=== PATIENT | male | born 1980 | race Caucasian/White ===

== ENCOUNTER 2018-10-18 17:33 | Emergency (ER) | payer SELFPAY ==
--- NOTE | 2018-10-18 17:47 | ED ---
HPI Chest Pain - HPI Summary HPI Summary: Patient is a 38 y/o male who presents to the ED c/o chest tightness. 2 days ago he felt a brief moment of sharp left anterior chest pain after running. Yesterday he began having chest pain at 11:00, described as tightness, squeezing , and heaviness. He had some radiation to his LUE, and the entire episode lasted about 4 hours. During this episode patient also c/o dizziness, diaphoresis, fatigue, SOB, and was disoriented. The CP resolved later in the day. Today he noted very mild chest discomfort when he woke up. He then began having intense pain radiating up his left posterior neck. Current pain is rated a 3/10 in severity. Patient still reports intermittent SOB, but denies any nausea. He does not normally exercise. Patients paternal grandfather had an AK at 72 y/o. He denies any hx of DM, HTN, or HLD. Patient is former smoker. - History of Current Complaint Chief Complaint: EDChestPainROMI Time Seen by Provider: 10/18/18 17:45 Hx Obtained From: Patient Onset/Duration: Started Days Ago - 2, Still Present Current Severity: Mild Pain Intensity: 3 Pain Scale Used: 0-10 Numeric Chest Pain Location: Left Anterior Chest Pain Radiates: Yes Chest Pain Radiates To:: Arm - left, Neck - left Character: Heaviness, Pressure/Squeezing, Tightness Aggravating Factor(s): Exertion Associated Signs and Symptoms: Positive: Chest Pain, Dizziness, Shortness of Breath, Diaphoresis. Negative: Nausea - Allergy/Home Medications Allergies/Adverse Reactions: Allergies Allergy/AdvReac Type Severity Reaction Status Date / Time No Known Allergies Allergy Verified 10/18/18 17:34 PMH/Surg Hx/FS Hx/Imm Hx Endocrine/Hematology History: Denies: Hx Diabetes Cardiovascular History: Denies: Hx Hypercholesterolemia, Hx Hypertension Respiratory History: Denies: Hx Asthma - Immunization History Date of Tetanus Vaccine: pt states unsure Date of Influenza Vaccine: none Infectious Disease History: No Infectious Disease History: Denies: Traveled Outside the [place] in Last 30 Days - Family History Known Family History: Positive: Cardiac Disease - [place] - paternal grandfather 72 y /o, Other - HLD - father - Social History Alcohol Use: Daily Alcohol Amount: 2-3 beers/day Hx Substance Use: No Substance Use Type: Reports: None Hx Tobacco Use: Yes Smoking Status (MU): Former Smoker Review of Systems Positive: Fatigue, Skin Diaphoresis Positive: Chest Pain - tightness Positive: Shortness Of Breath Negative: Nausea Positive: Myalgia - left neck, LUE Neurological: Other - Dizziness, disoriented All Other Systems Reviewed And Are Negative: Yes Physical Exam - Summary Physical Exam Summary: Appearance: Well appearing, no pain distress Skin: warm, dry, reflects adequate perfusion Head/face: normal Eyes: EOMI, KANDI ENT: normal Neck: supple, non-tender Respiratory: CTA, breath sounds present Cardiovascular: RRR, pulses symmetrical Abdomen: non-tender, soft Musculoskeletal: normal, strength/ROM intact Neuro: normal, sensory motor intact, A&Ox3 Triage Information Reviewed: Yes Vital Signs On Initial Exam: Initial Vitals Temp Pulse Resp BP Pulse Ox 98.1 F 88 20 125/91 99 10/18/18 17:34 10/18/18 17:34 10/18/18 17:34 10/18/18 17:34 10/18/18 17:34 Vital Signs Reviewed: Yes Diagnostics - Vital Signs Vital Signs Temp Pulse Resp BP Pulse Ox 10/18/18 17:34 98.1 F 88 20 125/91 99 - Laboratory Result Diagrams: 10/18/18 18:14 10/18/18 18:14 Lab Statement: Any lab studies that have been ordered have been reviewed, and results considered in the medical decision making process. - Radiology CXR Radiology Interpretation Completed By: ED Physician Summary of Radiographic Findings: No acute infiltrate. Pending official radiology report. - EKG 17:47 Cardiac Rate: NL - 79 bpm EKG Rhythm: Sinus Rhythm EKG Comparison: No Significant Change - as compared to 05/15/14 Summary of EKG Findings: No acute changes Re-Evaluation - Re-Evaluation First Eval Re-Evaluation Time: 19:30 Change: Unchanged Comment: Pt is feeling fine. Discussed lab results. Second Eval Re-Evaluation Time: 21:40 Change: Unchanged Comment: Discussed admission with pt, however he does not want to stay. Chest Pain Course/Dx - Course Course Of Treatment: Patient is a 38 y/o male who presents to the ED c/o chest tightness, dizziness, diaphoresis, fatigue, SOB, and was disoriented. The CP radiates to his left neck. A physical exam was normal. A CXR was negative. An EKG was normal with a rate of 79 bpm. Bloodwork obtained. In the course patient was given ASA. Discussed admission with patient, however he does not want to stay. Discussed risks of leaving AMA. Patient is leaving AMA with a final dx of chest pain/unstable angina. He is agreeable with this plan. - Chest Pain Differential Diagnosis/HQI/PQRI: Acute AK, ACS, Angina - Diagnoses Provider Diagnoses: Chest pain Discharge - Sign-Out/Discharge Documenting (check all that apply): Patient Departure - AMA Patient Received Moderate/Deep Sedation with Procedure: No - Discharge Plan Condition: Improved Disposition: AGAINST MEDICAL ADVICE Patient Education Materials: Chest Pain (ED) Referrals: [facility] [place] PHYSICIAN REFERRAL [Outside] - 3 Days Edson Arellano MD [Medical Doctor] - (1-3 days) Additional Instructions: RETURN TO THE ED WITH ANY NEW OR WORSENING SYMPTOMS. - Billing Disposition and Condition Condition: IMPROVED Disposition: Against Medical Advice - Attestation Statements Document Initiated by Scribe: Yes Documenting Scribe: Christi Brown Provider For Whom Scribe is Documenting (Include Credential): Petros Hyde MD Scribe Attestation: Christi Narayan, scribed for Petros Hyde MD on 10/19/18 at 0739. Scribe Documentation Reviewed: Yes Provider Attestation: The documentation as recorded by the Christi luna accurately reflects the service I personally performed and the decisions made by , Petros Hyde MD Status of Scribe Document: Viewed
[2018-10-18] MEDS ORDERED: Aspirin 81 mg CHEW TAB* 81 MG TAB.CHEW PO ONE (18:05)
[2018-10-18 18:22] LABS: ABS Basophils 0.1 10^3/ul (0-0.2); ABS Eosinophils 0 10^3/ul (0-0.6); ABS Lymphocytes 1.3 10^3/ul (1.0-4.8); ABS Monocytes 0.7 10^3/ul (0-0.8); ABS Neutrophils 2.4 10^3/ul (1.5-7.7); ABS Nucleated RBC 0 10^3/ul; Eosinophil % 0.7 %; Hematocrit 43 % (36-46); Hemoglobin 14.5 g/dL (14.0-18.0); Lymphocyte % 29.3 %; Mean Corpuscular HGB Conc 34 g/dL (31-36); Mean Corpuscular Hemoglobin 30 pg (27-31); Mean Corpuscular Volume 89 fL (80-94); Mean Platelet Volume 7.6 fL (7.4-10.4); Nucleated Red Blood Cells % 0.1; Platelet Count 259 10^3/uL (150-450); Red Cell Distribution Width 13 % (10.5-15); White Blood Count 4.4 10^3/uL (3.5-10.8)
[2018-10-18 18:42] LABS: Albumin 4.4 g/dL (3.2-5.2); Albumin/Globulin Ratio 1.7 (1-3); BUN/Creatinine Ratio 14.3 (8-20); Calcium 9.3 mg/dL (8.6-10.3); EGFR African American 123.7 (>60); EGFR Non-African American 102.3 (>60); Globulin 2.6 g/dL (2-4); Potassium 3.8 mmol/L (3.5-5.0)
[2018-10-18 18:44] LABS: Activated Partial Thrombo Time 31.8 seconds (26.0-36.3); INR 0.92 (0.82-1.09)
[2018-10-18 19:18] LABS: TSH (Thyroid Stimulating Horm) 1.05 mcIU/mL (0.34-5.60)
[2018-10-18 22:02] VITALS: BP 116/96
== END 2018-10-18 22:02 | disposition left against medical advice (07) ==
LOC: ED 17:33
DX: R07.9 Chest pain, unspecified (principal); I27.9 Pulmonary heart disease, unspecified; R94.31 Abnormal electrocardiogram [ECG] [EKG]; Z87.891 Personal history of nicotine dependence
CPT/HCPCS: 36415; 71045; 80053; 83605; 83880; 84443; 84484; 85025; 85610; 85730; 93005; 99283; A9270-GY

== ENCOUNTER 2019-01-06 13:01 | Emergency (ER) | payer OTHER ==
[2019-01-06 13:29] VITALS: BP 93/62
--- NOTE | 2019-01-06 13:58 | UC ---
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 Presents today after cat bite through protective gloves, patient with script for rabies titer and eval. no loss of motion, sensation intact. Bite over L 5th MCP - History of Current Complaint Chief Complaint: UCBiteInjury Stated Complaint: CAT BITE Time Seen by Provider: 01/06/19 13:50 Hx Obtained From: Patient Severity Currently: None Pain Intensity: 0 Pain Scale Used: 0-10 Numeric Onset/Duration: Sudden Onset, Lasting Minutes Type of Bite: Animal - cat, unknown vacinations- ferral Has Animal Been Immunized?: Unknown Character: Puncture Aggravating Factor(s): Nothing Alleviating Factor(s): Nothing Associated Signs And Symptoms: Positive: Negative Hx of Bite: Unprovoked Animal Available for Observation: Yes Animal Control Notified: Yes - Allergies/Home Medications Allergies/Adverse Reactions: Allergies Allergy/AdvReac Type Severity Reaction Status Date / Time No Known Allergies Allergy Verified 01/06/19 13:26 Home Medications: Home Medications Multivitamin [Multivitamins] 1 tab PO DAILY 01/06/19 [History Confirmed 01/06/19 ] Omeprazole Magnesium [Prilosec] 1 tab PO DAILY PRN 01/06/19 [History Confirmed 01/06/19] PMH/Surg Hx/FS Hx/Imm Hx Previously Healthy: Yes - Surgical History Surgical History: None - Family History Known Family History: Positive: Cardiac Disease - [place] - paternal grandfather 72 y /o, Other - HLD - father - Social History Alcohol Use: Weekly Alcohol Amount: 2-3 beers/day Substance Use Type: Marijuana Smoking Status (MU): Former Smoker Household Exposure Type: Cigarettes Review of Systems All Other Systems Reviewed And Are Negative: Yes Constitutional: Positive: Negative Skin: Positive: Other - small superficial puncture wounds washed at work initially with alcohol then soap and water Psychological: Positive: Negative Is Patient Immunocompromised?: No Physical Exam Triage Information Reviewed: Yes Appearance: Well-Appearing, No Pain Distress, Well-Nourished Vital Signs: Initial Vital Signs Temp 98.2 F 01/06/19 13:22 Pulse 79 01/06/19 13:22 Resp 18 01/06/19 13:22 BP 93/62 01/06/19 13:22 Pulse Ox 99 01/06/19 13:22 Vital Signs Reviewed: Yes Eyes: Positive: Conjunctiva Clear Musculoskeletal: Positive: Strength Intact, ROM Intact, No Edema - L hand all fingers, cap refill < 2 secs L hand, non-tender to palpation over 5th MCP, metacarp. full ROM of all joints L hadn without pain sensation intact throughout hand Neurological: Positive: Alert Psychological Exam: Normal Skin: Positive: Other - small superficial laceration 5th MCP L Bite Injury Course/Dx - Course Course Of Treatment: - unknown tdap- booster given. - rabies titer drawn - follow up with PCP/ UC/ Ortho if worsening. - abx prophy given - Differential Dx/Diagnosis Differential Diagnosis/HQI/PQRI: Laceration, Puncture Provider Diagnosis: Cat bite involving extremity Discharge - Sign-Out/Discharge Documenting (check all that apply): Patient Departure All imaging exams completed and their final reports reviewed: No Studies - Discharge Plan Condition: Good Disposition: HOME Prescriptions: Amoxicillin/Clavulanate TAB* [Augmentin TAB 875*] 875 mg PO BID #14 tab Patient Education Materials: Amoxicillin/Clavulanate Potassium (By mouth), Animal Bite (ED) Referrals: David Farooq MD [Medical Doctor] - (Follow up with any complications or if unable to see primary ) No Primary Care Phys,NOPCP [Primary Care Provider] - Additional Instructions: - Keep monitoring area- if increased pain, redness, decreased movement, return or see primary physician - Rabies titer drawn- call for results or follow up with workers comp - Keep are clean, dry - Go to ER with fevers, chills, pain with movement of fingers, decreased sensation or increased swelling - Billing Disposition and Condition Condition: GOOD Disposition: Home
[2019-01-06] MEDS: Tetan/Diph/Pertus SYR(Tdap)* 0.5 ML SYR(BOOSTRIX) use SYR IM ONE (14:06)
== END 2019-01-06 14:25 | disposition home or self-care (01) ==
LOC: UCEAST 13:01
DX: S61.452A Open bite of left hand, initial encounter (principal); W55.01XA Bitten by cat, initial encounter; Y92.89 Other specified places as the place of occurrence of the external cause; Z87.891 Personal history of nicotine dependence
CPT/HCPCS: 90471; 90715; 99212; G0463